=== PATIENT | male | born 1940 | race Caucasian/White ===

== ENCOUNTER 2018-06-04 08:41 | Emergency (ER) | payer OTHER ==
[2018-06-04 09:14] LABS: Absolute Lymphocytes (CBC) 1.7 K/uL (0.7-4.9); Absolute Monocytes 0.8 K/uL (0.1-1.3); Absolute Neutrophil 5.5 K/uL (1.8-8.0); Basophils % 1.1 % (0-1.3); Eosinophils % 4.2 % (0-4.4); Hematocrit 44.3 % (39.6-49.0); Lymphocytes % 19.7 % (15.3-44.8); MCH 33.3 pg (27.0-35.0); MCV 94.1 fL (80-100); MPV 8.9 fL (7.6-11.3); RBC Red Blood Cell Count 4.71 M/uL (4.33-5.43)
[2018-06-04] MEDS ORDERED: ONDANSETRON 4 MG/2 ML VIAL ONE (09:17)
[2018-06-04] MEDS ORDERED: MORPHINE 4 MG/ML SYR ONE (09:17)
[2018-06-04 09:30] LABS: Albumin 3.6 g/dL (3.4-5.0); Bilirubin Direct 0.1 mg/dL (0-0.2); Bilirubin Total 0.7 mg/dL (0.2-1.0); Protein, Total 8.2 g/dL (6.4-8.2)
[2018-06-04 09:31] LABS: Protime INR 1.03
--- NOTE | 2018-06-04 09:39 | RAD REPORT ---
EXAM DESCRIPTION: US - Abdomen Exam Limited - 06/04/2018 9:26 am CLINICAL HISTORY: RUQ Pain COMPARISON: No comparisons FINDINGS: The gallbladder demonstrates no gallstones. No pericholecystic fluid or gallbladder wall t hickening. The common bile duct is normal measuring 4 mm. The liver demonstrates no findings of intrahepatic biliary dilatation. IMPRESSION: Unremarkable examination.
[2018-06-04 09:43] LABS: Magnesium 2.1 mg/dL (1.8-2.4); NT PRO-BNP 187 pg/mL (<450); Troponin (Emerg Dept Use Only) < 0.02 ng/mL (0.0-0.045)
--- NOTE | 2018-06-04 09:46 | RAD REPORT ---
EXAM DESCRIPTION: RAD - Chest Single View - 06/04/2018 9:39 am CLINICAL HISTORY: CHEST PAIN Chest pain. COMPARISON: CHEST SINGLE VIEW dated 12/23/2011 FINDINGS: Portable technique limits examination quality. The lungs are grossly clear. The heart is normal in size. No displaced fractures. IMPRESSION: No acute intrathoracic process suspected.
--- NOTE | 2018-06-04 10:13 | RAD REPORT ---
EXAM DESCRIPTION: CT - Abdomen Pelvis W Contrast - 06/04/2018 9:56 am CLINICAL HISTORY: Abdominal pain COMPARISON: None. TECHNIQUE: Biphasic, helical CT imaging of the abdomen and pelvis was performed following 100 ml non -ionic IV contrast. Oral contrast was given. All CT scans are performed using dose optimization technique as appropriate and may include automated exposure control or mA/KV adjustment according to patient size. FINDINGS: No suspicious findings in the lung bases. The liver, spleen, and pancreas show no suspicious findings. Gallbladder and biliary tree are also wi thout suspicious finding. Symmetric renal function is seen with no hydronephrosis or suspicious renal mass. No pyelonephritis o r acute parenchymal process. No bladder abnormalities. No adrenal abnormalities. No dilated bowel loops or bowel wall thickening. No appendicitis findings. Patient has moderate sever ity sigmoid diverticulosis without diverticulitis. No acute GI process seen. No free air, free fluid or pneumatosis. Patient has a nonspecific congested or edematous appearance to the central mesenteric fat. There are few small mesenteric lymph nodes present. No mass or bulky lymphadenopathy. Patient has a small fat only umbilical hernia. No suspicious bony findings. IMPRESSION: Moderate diverticulosis of the sigmoid colon without diverticulitis or acute GI process. Nonspecific congestion to the central mesenteric fat and a few small mesenteric lymph nodes. This is generally of no clinical significance. Minimal enteritis would be possible.
--- NOTE | 2018-06-04 10:59 | EDPHYS ---
Physician Documentation [facility] Name: Luis Beach Age: 77 yrs Sex: Male : 1940 Arrival Date: 06/04/2018 Time: 08:46 Bed 19 Private MD: Travon Mendoza E ED Physician Travon Paulson HPI: 06/04 09:30 This 77 yrs old Male presents to ER via Ambulatory with complaints of pm1 Abdominal pain. 09:30 The patient presents with abdominal pain in the right upper quadrant. Onset: The pm1 symptoms/episode began/occurred 3 day(s) ago. The symptoms radiate to right back. Associated signs and symptoms: Pertinent negatives: nausea, vomiting, and diarrhea. The symptoms are described as constant, sharp. Modifying factors: The symptoms are alleviated by nothing, the symptoms are aggravated by movement. Modifying factors: The symptoms are alleviated by NSAIDs. Severity of pain: in the emergency department the pain is unchanged. The patient has not experienced similar symptoms in the past. 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 - Social history:: Smoking status: Patient/guardian denies using tobacco. - Ebola Screening: : Patient negative for fever greater than or equal to 101.5 degrees Fahrenheit, and additional compatible Ebola Virus Disease symptoms Patient denies exposure to infectious person Patient denies travel to an Ebola-affected area in the 21 days before illness onset No symptoms or risks identified at this time. ROS: 09:30 Constitutional: Negative for fever, chills, and weight loss, Eyes: Negative for injury, pm1 pain, redness, and discharge, ENT: Negative for injury, pain, and discharge, Neck: Negative for injury, pain, and swelling, Cardiovascular: Negative for chest pain, palpitations, and edema, Respiratory: Negative for shortness of breath, cough, wheezing, and pleuritic chest pain. 09:30 : Negative for injury, bleeding, discharge, and swelling, MS/Extremity: Negative for injury and deformity, Skin: Negative for injury, rash, and discoloration. 09:30 Neuro: Negative for headache, weakness, numbness, tingling, and seizure. 09:30 Abdomen/GI: Positive for abdominal pain, Negative for nausea, vomiting, and diarrhea. 09:30 Back: Positive for of the right mid back, pain. Exam: 09:30 Constitutional: This is a well developed, well nourished patient who is awake, alert, pm1 and in no acute distress. Head/Face: Normocephalic, atraumatic. Eyes: Pupils equal round and reactive to light, extra-ocular motions intact. Lids and lashes normal. Conjunctiva and sclera are non-icteric and not injected. Cornea within normal limits. Periorbital areas with no swelling, redness, or edema. ENT: Nares patent. No nasal discharge, no septal abnormalities noted. Tympanic membranes are normal and external auditory canals are clear. Oropharynx with no redness, swelling, or masses, exudates, or evidence of obstruction, uvula midline. Mucous membranes moist. Neck: Trachea midline, no thyromegaly or masses palpated, and no cervical lymphadenopathy. Supple, full range of motion without nuchal rigidity, or vertebral point tenderness. No Meningismus. Chest/axilla: Normal chest wall appearance and motion. Nontender with no deformity. No lesions are appreciated. Cardiovascular: Regular rate and rhythm with a normal S1 and S2. No gallops, murmurs, or rubs. Normal PMI, no JVD. No pulse deficits. Respiratory: Lungs have equal breath sounds bilaterally, clear to auscultation and percussion. No rales, rhonchi or wheezes noted. No increased work of breathing, no retractions or nasal flaring. 09:30 Skin: Warm, dry with normal turgor. Normal color with no rashes, no lesions, and no evidence of cellulitis. MS/ Extremity: Pulses equal, no cyanosis. Neurovascular intact. Full, normal range of motion. 09:30 Abdomen/GI: Inspection: abdomen appears normal, Bowel sounds: normal, Palpation: soft, mild abdominal tenderness, in the right upper quadrant, mass, is not appreciated, rebound tenderness, is not appreciated. 09:30 Back: vertebral tenderness, is not appreciated, muscle spasm, is appreciated in the right mid back. 09:30 Neuro: Orientation: is normal, Motor: is normal, no acute changes, moves all fours, Sensation: is normal, no obvious gross deficits. Vital Signs: 08:57 BP 207 / 89; Pulse 68; Resp 18 S; Temp 97.5(TE); Pulse Ox 97% on R/A; Weight 88.45 kg; iw Height 5 ft. 9 in. (175.26 cm); Pain 10/10; 09:31 BP 187 / 79; iw 10:08 Pain 2/10; sv 10:10 BP 205 / 90; Pulse 69 MON; Resp 15; Pulse Ox 99% on R/A; sv 10:49 BP 174 / 81; Pulse 63; Resp 16; Pulse Ox 95% ; sv 11:10 BP 171 / 79; Pulse 70; Resp 18; Temp 98.5; Pulse Ox 96% on R/A; Pain 5/10; ch 08:57 Body Mass Index 28.80 (88.45 kg, 175.26 cm) iw 10:10 Sinus Rhythm sv MDM: 08:50 Patient medically screened. pm1 10:56 Data reviewed: vital signs. Data interpreted: Pulse oximetry: on room air is 99 %. pm1 Interpretation: normal. Counseling: I had a detailed discussion with the patient and/or guardian regarding: the historical points, exam findings, and any diagnostic results supporting the discharge/admit diagnosis, lab results, radiology results, the need for outpatient follow up, to return to the emergency department if symptoms worsen or persist or if there are any questions or concerns that arise at home. 10:56 Special discussion: Based on the patient's Hx, exam, and Dx evaluation, there is no pm1 indication for emergent surgery or inpatient Tx. It is understood by the patient/guardian that if the Sx's persist or worsen they need to return immediately for re-evaluation. I discussed with the patient/guardian in detail that at this point there is no indication for admission to the hospital. It is understood, however, that if the symptoms persist or worsen the patient needs to return immediately for re-evaluation. 06/04 08:58 Order name: Basic Metabolic Panel pm1 06/04 08:58 Order name: CBC with Diff pm1 06/04 08:58 Order name: Creatinine for Radiology; Complete Time: :36 pm1 06/04 08:58 Order name: Hepatic Function; Complete Time: 09:36 pm1 06/04 08:58 Order name: Lipase; Complete Time: 09:36 pm1 06/04 08:59 Order name: Basic Metabolic Panel; Complete Time: 09:36 EDMS 06/04 08:58 Order name: US Abdomen Limited; Complete Time: 09:41 pm1 06/04 08:59 Order name: CBC with Automated Diff; Complete Time: 09:36 EDMS 06/04 09:07 Order name: Magnesium; Complete Time: 10:05 pm1 06/04 09:07 Order name: NT PRO-BNP; Complete Time: 10:05 pm1 06/04 09:07 Order name: PT-INR; Complete Time: 09:41 pm1 06/04 09:07 Order name: Troponin (emerg Dept Use Only); Complete Time: 10:05 pm1 06/04 09:07 Order name: XRAY Chest (1 view); Complete Time: 10:05 pm1 06/04 09:37 Order name: CT Abd/Pelvis - W/Contrast: IV contrast only; Complete Time: 10:27 pm1 06/04 08:58 Order name: IV Saline Lock; Complete Time: 09:07 pm1 06/04 08:58 Order name: Labs collected and sent; Complete Time: 09:07 pm1 06/04 09:07 Order name: EKG; Complete Time: 09:08 pm1 06/04 09:07 Order name: Cardiac monitoring; Complete Time: 10:08 pm1 06/04 09:07 Order name: EKG - Nurse/Tech; Complete Time: 09:15 pm1 06/04 09:07 Order name: O2 Per Protocol; Complete Time: 09:15 pm1 06/04 09:07 Order name: O2 Sat Monitoring; Complete Time: 09:15 pm1 Administered Medications: 09:13 Drug: Zofran 4 mg Route: IVP; Site: right antecubital; sv 10:08 Follow up: Response: No adverse reaction sv 09:15 Drug: morphine 4 mg Route: IVP; Site: right antecubital; sv 10:08 Follow up: Pain 2/10 Adult; Response: No adverse reaction; Marked relief of symptoms sv Disposition: 06/04/18 10:59 Discharged to Home. Impression: Unspecified abdominal pain. - Condition is Stable. - Discharge Instructions: Abdominal Pain, Adult, Back Pain, Adult, Back Injury Prevention. - Prescriptions for Tramadol 50 mg Oral Tablet - take 1 tablet by ORAL route every 8 hours as needed; 12 tablet. - Medication Reconciliation Form, Thank You Letter, Prescription Opioid Use form. - Follow up: Emergency Department; When: As needed; Reason: Worsening of condition. Follow up: Private Physician; When: 2 - 3 days; Reason: Recheck today's complaints, Continuance of care, Re-evaluation by your physician. - Problem is new. - Symptoms have improved. Signatures: Dispatcher [employer] EDAaliyah Garces RN RN Sera Holder RN RN Tamia Burnett RN RN iw Mauri Grande NP LD TEACHER pm1 Corrections: (The following items were deleted from the chart) 11:11 10:59 06/04/2018 10:59 Discharged to Home. Impression: Unspecified abdominal pain. ch Condition is Stable. Forms are Medication Reconciliation Form, Thank You Letter, Antibiotic Education, Prescription Opioid Use. Follow up: Emergency Department; When: As needed; Reason: Worsening of condition. Follow up: Private Physician; When: 2 - 3 days; Reason: Recheck today's complaints, Continuance of care, Re-evaluation by your physician. Problem is new. Symptoms have improved. pm1
--- NOTE | 2018-06-04 10:59 | ER ---
Nurse's Notes [facility] Name: Luis Beach Age: 77 yrs Sex: Male : 1940 Arrival Date: 06/04/2018 Time: 08:46 Bed 19 Private MD: Travon Mendoza E Diagnosis: Unspecified abdominal pain Presentation: 06/04 08:55 Presenting complaint: Patient states: c/o pain to RUQ radiating to right mid back X 3 iw days, constant. Transition of care: patient was not received from another setting of care. Onset of symptoms was June 01, 2018. Risk Assessment: Do you want to hurt yourself or someone else? Patient reports no desire to harm self or others. Initial Sepsis Screen: Does the patient meet any 2 criteria? No. Patient's initial sepsis screen is negative. Does the patient have a suspected source of infection? No. Patient's initial sepsis screen is negative. Care prior to arrival: None. 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 - Social history:: Smoking status: Patient/guardian denies using tobacco. - Ebola Screening: : Patient negative for fever greater than or equal to 101.5 degrees Fahrenheit, and additional compatible Ebola Virus Disease symptoms Patient denies exposure to infectious person Patient denies travel to an Ebola-affected area in the 21 days before illness onset No symptoms or risks identified at this time. Screenin:50 Abuse screen: Denies threats or abuse. Denies injuries from another. Nutritional sv screening: No deficits noted. Tuberculosis screening: No symptoms or risk factors identified. Fall Risk None identified. Assessment: 10:11 Reassessment: Patient appears in no apparent distress at this time. Patient and/or sv family updated on plan of care and expected duration. Pain level reassessed. Patient is alert, oriented x 3, equal unlabored respirations, skin warm/dry/pink. Patient states symptoms have improved. 11:10 Reassessment: Patient appears in no apparent distress at this time. Patient and/or ch family updated on plan of care and expected duration. Pain level reassessed. Patient is alert, oriented x 3, equal unlabored respirations, skin warm/dry/pink. Patient states feeling better. Vital Signs: 08:57 BP 207 / 89; Pulse 68; Resp 18 S; Temp 97.5(TE); Pulse Ox 97% on R/A; Weight 88.45 kg; iw Height 5 ft. 9 in. (175.26 cm); Pain 10/10; 09:31 BP 187 / 79; iw 10:08 Pain 2/10; sv 10:10 BP 205 / 90; Pulse 69 MON; Resp 15; Pulse Ox 99% on R/A; sv 10:49 BP 174 / 81; Pulse 63; Resp 16; Pulse Ox 95% ; sv 11:10 BP 171 / 79; Pulse 70; Resp 18; Temp 98.5; Pulse Ox 96% on R/A; Pain 5/10; ch 08:57 Body Mass Index 28.80 (88.45 kg, 175.26 cm) iw 10:10 Sinus Rhythm sv ED Course: 08:46 Patient arrived in ED. mr 08:46 Travon Mendoza MD is Private Physician. mr 08:49 Mauri Grande NP is PHCP. pm1 08:49 Travon Paulson MD is Attending Physician. pm1 08:50 Sera Martinez RN is Primary Nurse. sv 08:50 Arm band placed on Patient placed in an exam room, on a stretcher. sv 08:50 Patient has correct armband on for positive identification. Placed in gown. Bed in low sv position. 08:54 Nurse Practitioner and/or Physician Post Office Clerk to see patient. sv 08:56 Triage completed. iw 09:08 Basic Metabolic Panel Sent. sv 09:08 CBC with Diff Sent. sv 09:08 EKG done, by equipment maint tech. reviewed by Mauri Grande NP. at1 09:16 Patient taken to ultrasound. via wheelchair. sv 09:26 US Abdomen Limited In Process Unspecified. EDMS 09:35 Radiology exam delayed due to PT IN ULTRASOUND. ls3 09:36 X-ray completed. Patient tolerated procedure well. ls3 09:37 Patient moved back from radiology. ls3 09:38 XRAY Chest (1 view) In Process Unspecified. EDMS 09:57 CT Abd/Pelvis - W/Contrast: IV contrast only In Process Unspecified. EDMS 10:11 No provider procedures requiring assistance completed. Patient maintains SpO2 sv saturation greater than 95% on room air. 11:10 quality assurance monitor body on. Pulse ox on. NIBP on. ch 11:10 IV discontinued, intact, bleeding controlled, No redness/swelling at site. Pressure ch dressing applied. Administered Medications: 09:13 Drug: Zofran 4 mg Route: IVP; Site: right antecubital; sv 10:08 Follow up: Response: No adverse reaction sv 09:15 Drug: morphine 4 mg Route: IVP; Site: right antecubital; sv 10:08 Follow up: Pain / Adult; Response: No adverse reaction; Marked relief of symptoms sv Outcome: 10:59 Discharge ordered by MD. pm1 11:10 Discharged to home ambulatory, with family. ch 11:10 Condition: stable 11:10 Discharge instructions given to patient, family, Instructed on discharge instructions, follow up and referral plans. medication usage, Demonstrated understanding of instructions, follow-up care, medications, Prescriptions given X 1. 11:11 Patient left the ED. Signatures: Dispatcher [employer] EDMS Aaliyah Poole, RN Sera Lee ch RN Delia Flynn Irene, RN RN iw Corrie Hendrix, hide selector EKG Tat1 Mauri Grande, PORCELAIN ENAMEL REPAIRER PORCELAIN ENAMEL REPAIRER pm1 George Dinh ls3 Corrections: (The following items were deleted from the chart) 09:02 08:57 Pulse 68bpm; Resp 18bpm; Spontaneous; Pulse Ox 97% RA; Temp 97.5F Temporal; iw iw
--- NOTE | 2018-06-04 11:07 | EKG ---
Test Date: 2018-06-04 Test Time: 09:08:04 Desk Sergeant: DUSTY MEASUREMENT RESULTS: Intervals: Rate: 61 MN: 184 QRSD: 96 QT: 444 QTc: 446 [place]: P: 57 MN: 184 QRS: -38 T: 72 INTERPRETIVE STATEMENTS: Sinus rhythm with premature atrial complexes Left axis deviation Voltage criteria for left ventricular hypertrophy Abnormal ECG Compared to ECG 12/23/2011 08:08:05 Atrial premature complex(es) now present Left-axis deviation now present Electronically Signed On 06-04-18 11:05:49 MASTER WELDER by Sammy Reyes
[2018-06-04 11:24] VITALS: BP 171/79; TEMP 98.5; O2SAT 96
== END 2018-06-04 11:11 | disposition home or self-care (01) ==
LOC: ER 08:41
DX: R10.11 Right upper quadrant pain (principal); I10 Essential (primary) hypertension
CPT/HCPCS: 36415; 71045; 74177; 76705; 80048; 80076; 83690; 83735; 83880; 84484; 85025; 85610; 93005; J2405; Q9967; 96374; 96375; 99285

== ENCOUNTER 2018-06-30 22:03 | Emergency (ER) | payer OTHER ==
--- NOTE | 2018-06-30 22:50 | ER ---
Nurse's Notes [facility] Name: Luis Beach Age: 77 yrs Sex: Male : 1940 Arrival Date: 06/30/2018 Time: 22:04 Bed 5 Private MD: Travon Mendoza E Diagnosis: Zoster [herpes zoster] Presentation: 06/30 22:11 Presenting complaint: Patient states: "I was diagnosed with shingles a month ago, I aj1 took all my medications and this thing has been going for 30 days and I have no pain relief" Patient reports that he has not been able to follow up with [place] Transition of care: patient was not received from another setting of care. Onset of symptoms was May 2018. Risk Assessment: Do you want to hurt yourself or someone else? Patient reports no desire to harm self or others. Initial Sepsis Screen: Does the patient meet any 2 criteria? No. Patient's initial sepsis screen is negative. Does the patient have a suspected source of infection? No. Patient's initial sepsis screen is negative. Care prior to arrival: None. 22:11 Method Of Arrival: Ambulatory aj1 22:11 Acuity: RAN 3 aj1 Triage Assessment: 22:13 General: Appears in no apparent distress. uncomfortable, Behavior is calm, cooperative, aj1 appropriate for age. Pain: Complains of pain in back and abdomen Pain currently is 10 out of 10 on a pain scale. Neuro: Level of Consciousness is awake, alert, obeys commands. Cardiovascular: Patient's skin is warm and dry. Respiratory: Airway is patent Respiratory effort is even, unlabored, Respiratory pattern is regular, symmetrical. Historical: - Allergies: 22:13 No Known Allergies; aj1 - Home Meds: 22:13 amlodipine 5 mg oral tab once daily [Active]; carvedilol 12.5 mg Oral tab 2 times per aj1 day [Active]; hydrochlorothiazide 12.5 mg Oral tab 1 tab once daily [Active]; - PMHx: 22:13 Hypertension; aj1 - Immunization history:: Flu vaccine is not up to date. - Social history:: Smoking status: Patient/guardian denies using tobacco. - Ebola Screening: : Patient denies travel to an Ebola-affected area in the 21 days before illness onset. - Family history:: not pertinent. - Hospitalizations: : No recent hospitalization is reported. Screenin:14 Abuse screen: Denies threats or abuse. Denies injuries from another. Nutritional ed1 screening: No deficits noted. Tuberculosis screening: No symptoms or risk factors identified. Fall Risk None identified. Assessment: 22:14 General: Appears uncomfortable, Behavior is calm, cooperative. Pain: Complains of pain ed1 in chest and abdomen and back Pain currently is 10 out of 10 on a pain scale. Quality of pain is described as burning, stinging, Pain began about 1 month ago. Neuro: Level of Consciousness is awake, alert, obeys commands, Oriented to person, place, time, situation. Cardiovascular: Denies chest pain, Heart tones S1 S2 present. Respiratory: Airway is patent Respiratory effort is even, unlabored, Respiratory pattern is regular, symmetrical, Breath sounds are clear bilaterally. Denies cough, shortness of breath. GI: No signs and/or symptoms were reported involving the gastrointestinal system. : No signs and/or symptoms were reported regarding the genitourinary system. EENT: No signs and/or symptoms were reported regarding the EENT system. Derm: Skin is intact, is healthy with good turgor, Skin is dry, Skin is normal, Skin temperature is warm Reports shingles diagnosis about 30 days ago. Musculoskeletal: Circulation, motion, and sensation intact. 23:04 Reassessment: Patient appears in no apparent distress at this time. No changes from ed1 previously documented assessment. Patient and/or family updated on plan of care and expected duration. Pain level reassessed. Patient is alert, oriented x 3, equal unlabored respirations, skin warm/dry/pink. Patient states symptoms have not improved. Vital Signs: 22:13 BP 172 / 99; Pulse 76; Resp 18; Temp 98.9; Pulse Ox 97% on R/A; Weight 90.72 kg (R); aj1 Height 5 ft. 9 in. (175.26 cm) (R); Pain 10/10; 23:04 BP 164 / 76; Pulse 71; Resp 18; Pulse Ox 98% on R/A; Pain 10/10; ed1 22:13 Body Mass Index 29.53 (90.72 kg, 175.26 cm) [facility] ED Course: 22:04 Patient arrived in ED. es 22:04 Travon Mendoza MD is Private Physician. es 22:13 Triage completed. aj1 22:13 Arm band placed on Patient placed in waiting room, Patient notified of wait time. aj1 22:14 Patient has correct armband on for positive identification. Bed in low position. Call ed1 light in reach. 22:39 Dinesh Fernando MD is Attending Physician. rn 22:49 Travon Mendoza MD is Referral Physician. rn 23:04 Marii Brennan LVN is Primary Nurse. ed1 23:04 No provider procedures requiring assistance completed. Patient did not have IV access ed1 during this emergency room visit. Administered Medications: 22:58 Drug: SOLU-Medrol 125 mg Route: IM; Site: right gluteus; tl2 23:07 Follow up: Response: Medication administered at discharge. ed1 22:58 Drug: [place] 5 mg-325 mg 1 tabs Route: PO; tl2 23:07 Follow up: Response: Medication administered at discharge. ed1 Outcome: 22:50 Discharge ordered by . rn 23:04 Discharged to home ambulatory, with significant other. ed1 23:04 Condition: good 23:04 Discharge instructions given to patient, Instructed on discharge instructions, follow up and referral plans. medication usage, Demonstrated understanding of instructions, follow-up care, medications. 23:07 Patient left the ED. ed1 Signatures: Natasha Oliva RN RN aj1 Lala Coffman Roman, MD MD rn Riggs, Erika, LVN LVN ed1 Malissa Henry RN RN tl2
--- NOTE | 2018-06-30 22:51 | EDPHYS ---
Physician Documentation [facility] Name: Luis Beach Age: 77 yrs Sex: Male : 1940 Arrival Date: 06/30/2018 Time: 22:04 Bed 5 Private MD: Travon Mendoza E ED Physician Dinesh Fernando HPI: 06/30 22:47 This 77 yrs old Male presents to ER via Ambulatory with complaints of rn SINGLES, Numbness, LEG. 22:47 The patient's rash thought to be caused by shingles. The rash is located on the chest. rn Onset: The symptoms/episode began/occurred 1 month(s) ago. Severity of symptoms: At their worst the symptoms were moderate in the emergency department the symptoms are unchanged. The patient has not experienced similar symptoms in the past. Reports diagnosed with shingles 1 month ago, took steroids, reports pain and rash still present, and his pcp is out of town. No new symptoms.. Historical: - Allergies: 22:13 No Known Allergies; aj1 - Home Meds: 22:13 amlodipine 5 mg oral tab once daily [Active]; carvedilol 12.5 mg Oral tab 2 times per aj1 day [Active]; hydrochlorothiazide 12.5 mg Oral tab 1 tab once daily [Active]; - PMHx: 22:13 Hypertension; aj1 - Immunization history:: Flu vaccine is not up to date. - Social history:: Smoking status: Patient/guardian denies using tobacco. - Ebola Screening: : Patient denies travel to an Ebola-affected area in the 21 days before illness onset. - Family history:: not pertinent. - Hospitalizations: : No recent hospitalization is reported. ROS: 22:47 Constitutional: Negative for fever, chills, and weight loss, Skin: + rash to right rn chest Exam: 22:47 Constitutional: This is a well developed, well nourished patient who is awake, alert, rn and in no acute distress. Skin: warm, dry, + linear rash to right chest wall, does not cross midline, no fluid drainage, + mild erythema and healing wounds Neuro: Awake and alert, GCS 15, oriented to person, place, time, and situation. Cranial nerves II-XII grossly intact. Motor strength 5/5 in all extremities. Sensory grossly intact. Cerebellar exam normal. Normal gait. Vital Signs: 22:13 BP 172 / 99; Pulse 76; Resp 18; Temp 98.9; Pulse Ox 97% on R/A; Weight 90.72 kg (R); aj1 Height 5 ft. 9 in. (175.26 cm) (R); Pain 10/10; 23:04 BP 164 / 76; Pulse 71; Resp 18; Pulse Ox 98% on R/A; Pain 10/10; ed1 22:13 Body Mass Index 29.53 (90.72 kg, 175.26 cm) aj MDM: 22:39 Patient medically screened. rn 22:47 Differential diagnosis: shingles. Data reviewed: vital signs, nurses notes, and as a rn result, I will discharge patient. Counseling: I had a detailed discussion with the patient and/or guardian regarding: the historical points, exam findings, and any diagnostic results supporting the discharge/admit diagnosis, the need for outpatient follow up, to return to the emergency department if symptoms worsen or persist or if there are any questions or concerns that arise at home. Special discussion: I discussed with the patient/guardian in detail that at this point there is no indication for admission to the hospital. It is understood, however, that if the symptoms persist or worsen the patient needs to return immediately for re-evaluation. Administered Medications: 22:58 Drug: SOLU-Medrol 125 mg Route: IM; Site: right gluteus; tl2 23:07 Follow up: Response: Medication administered at discharge. ed1 22:58 Drug: [place] 5 mg-325 mg 1 tabs Route: PO; tl2 23:07 Follow up: Response: Medication administered at discharge. ed1 Disposition: 06/30/18 22:50 Discharged to Home. Impression: Zoster [herpes zoster]. - Condition is Stable. - Discharge Instructions: Shingles. - Prescriptions for Tylenol- Codeine #3 300-30 mg Oral Tablet - take 1 tablet by ORAL route every 6 hours As needed; 20 tablet. Medrol (Thai) 4 mg Oral Tablets, Dose Pack - take 1 tablet by ORAL route as directed - follow package instructions; 1 packet. - Medication Reconciliation Form, Thank You Letter, Antibiotic Education, Prescription Opioid Use form. - Follow up: Travon Mendoza MD; When: As needed; Reason: Recheck today's complaints, Re-evaluation by your physician. - Problem is an ongoing problem. - Symptoms are unchanged. Signatures: Natasha Oliva RN RN aj1 Dinesh Fernando MD MD rn Riggs, Erika, APPLIANCE SERVICE SUPERVISOR APPLIANCE SERVICE SUPERVISOR ed1 Malissa Henry, RN RN tl2 Corrections: (The following items were deleted from the chart) 22:49 22:47 Constitutional: This is a well developed, well nourished patient who is awake, rn alert, and in no acute distress. Skin: warm, dry, + linear rash to right chest wall, does not cross midline, no fluid drainage, + mild erythema and healing wounds rn 23:07 22:50 06/30/2018 22:50 Discharged to Home. Impression: Zoster [herpes zoster]. ed1 Condition is Stable. Forms are Medication Reconciliation Form, Thank You Letter, Antibiotic Education, Prescription Opioid Use. Follow up: Travon Mendoza; When: As needed; Reason: Recheck today's complaints, Re-evaluation by your physician. Problem is an ongoing problem. Symptoms are unchanged. rn
[2018-06-30] MEDS ORDERED: METHYLPREDNISOLONE 125 MG INJ ONE (23:04)
[2018-06-30] MEDS ORDERED: HYDROCODONE/APAP 5/325 MG TAB ONE (23:04)
[2018-06-30 23:40] VITALS: TEMP 98.9
[2018-06-30 23:41] VITALS: BP 164/76; O2SAT 98
== END 2018-06-30 23:07 | disposition home or self-care (01) ==
LOC: ER 22:03
DX: B02.9 Zoster without complications (principal); I10 Essential (primary) hypertension
CPT/HCPCS: 96372; 99283; J2930

== ENCOUNTER 2022-11-14 10:24 | Emergency (ER) | payer OTHER ==
--- OUTSIDE RECORDS SUMMARY | 2022-11-14 10:28 | XMS REPORT | Continuity of Care Document ---
:1940 Author Organization [facility] Address [address] [place] [address] Care Team Providers Name Role Phone NADEEM HARVEY Attending Clinician Unavailable LISA MERAZ Attending Clinician Unavailable STACY MARINO Attending Clinician Unavailable STACY MARINO Attending Clinician Unavailable KACY MCKEON Attending Clinician Unavailable Payers Payer Name Policy Type Policy Number Effective Date Expiration Date S ayush MEDICARE PART A [id number] 2003 \T\ B 00:00:00 Problems This patient has no known problems. Allergies, Adverse Reactions, Alerts Allergy Allergy Status Severity Reaction(s) Onset Inactive Treating Comm ents Source Name Type Date Date Clinician NO KNOWN Drug Active [facility] Medications This patient has no known medications. Procedures This patient has no known procedures. Encounters Start End Encounter Admission Attending Care Care Encounter Source Date/Time Date/Time Type Type Clinicians Facility Department ID 2020-07-13 2020-07-13 Outpatient R WES [facility] [id number] Univers 09:00:00 09:00:[address] [facility] 2020-06-17 2020-06-17 Outpatient R MARIYA [facility] [id number] [facility] 20:20:00 20:20:00 LISA de [facility] 2020-06-16 2020-06-16 Outpatient R [facility] [id number] [facility] 13:40:00 13:40:00 [facility] 2020-06-08 2020-06-08 Outpatient R STACY MARINO [facility] [id number] [facility] 10:00:00 10:00:00 STACY MARINO [facility] 2020-05-18 2020-05-18 Outpatient R LINDA [facility] [id number] Univers 14:30:00 14:30:00 KACY franco [facility] Results This patient has no known results.
--- NOTE | 2022-11-14 12:01 | RAD REPORT ---
EXAM DESCRIPTION: CT - Spine Lumbar Wo Con - 11/14/2022 11:32 am CLINICAL HISTORY: pain, left leg weaknes COMPARISON: No comparisons TECHNIQUE: Axial noncontrast CT imaging of the lumbar spine was performed with coronal and sagittal re-formatted images. All CT scans are performed using dose optimization technique as appropriate and may include automated exposure control or mA/KV adjustment according to patient size. FINDINGS: No acute lumbar spine fracture seen. No aggressive marrow pattern. 4 millimeter anterolisthesis of L4 over L5, secondary to advanced facet and endplate degenerative bhargav nges. Paraspinal tissues are normal in thickness. No paraspinal abscess or hematoma seen. Intervertebral disc disease assessment is inherently limited by CT. Within these limitations, there a ppears to be at least moderate central canal stenosis at L4-5. Suspected mild central canal stenosis at L5-S1. Mild to moderate degrees of neural foraminal narrowing at L4-5 bilaterally, and mild degree s of neural foraminal narrowing at L3-4 and L5-S1 bilaterally. Colonic diverticulosis. IMPRESSION: No acute osseous abnormality. Multilevel degenerative changes of the lumbar spine with suspected at least moderate central canal st enosis at L4-5. Consider MRI follow-up for assessment of disc disease if clinically desired.
--- NOTE | 2022-11-14 12:02 | RAD REPORT ---
EXAM DESCRIPTION: RAD - Hip Left 2 View - 11/14/2022 11:40 am CLINICAL HISTORY: PAIN COMPARISON: No comparisons TECHNIQUE: Left hip, AP and frogleg views of the left hip. FINDINGS: There is no fracture or dislocation. No acute or destructive bony process seen. Mild lef t hip joint degenerative changes. IMPRESSION: No acute osseous abnormality. Mild degenerative changes.
[2022-11-14 12:19] LABS: Absolute Lymphocytes (CBC) 1.6 K/uL (0.7-4.9); Hematocrit 38.8 % (39.6-49.0); Lymphocytes % 20.9 % (15.3-44.8); MCV 93.3 fL (80-100); MPV 8.5 fL (7.6-11.3); RBC Red Blood Cell Count 4.16 M/uL (4.33-5.43)
[2022-11-14] MEDS ORDERED: KETOROLAC 30 MG/ML INJ ONE (12:23)
[2022-11-14] MEDS ORDERED: CYCLOBENZAPRINE 10 MG TAB ONE (12:23)
[2022-11-14 12:35] LABS: Albumin 3.1 g/dL (3.4-5.0); Bilirubin Total 0.4 mg/dL (0.2-1.0); Potassium 3.7 mEq/L (3.5-5.1); Protein, Total 7.3 g/dL (6.4-8.2)
--- NOTE | 2022-11-14 13:59 | EDPHYS ---
Physician Documentation [facility] Name: Luis Beach Age: 81 yrs Sex: Male : 1940 Arrival Date: 11/14/2022 Time: 10:24 Bed DIS2 Private MD: ED Physician James Bernal HPI: 11/14 13:46 This 81 yrs old Male presents to ER via Wheelchair with complaints of Back bs3 Pain, Trouble Walking. 13:46 81-year-old male history of hypertension usually walks with a cane at baseline presents bs3 with low back pain he feels like it is more in his left hip he denies any numbness tingling or weakness but he notes that due to the pain he has trouble walking he denies any falls denies any fevers or chills he denies any urinary or bowel incontinence denies any retention no saddle anesthesia although he reports ever since being diagnosed with COVID a long time ago he has had generalized weakness. Historical: - Allergies: 11:04 No Known Allergies; hb - PMHx: 11:04 Hypertension; hb - Immunization history:: Adult Immunizations up to date. - Social history:: Smoking status: . ROS: 13:46 Constitutional: Negative for fever, chills bs3 13:46 All other systems are negative. Exam: 13:46 Constitutional: This is a well developed, well nourished patient who is awake, alert, bs3 and in no acute distress. Head/Face: Normocephalic, atraumatic. Eyes: Pupils equal round and reactive to light, extra-ocular motions intact. Lids and lashes normal. ENT: mmm, no posterior phyarngeal erythema Neck: Trachea midline, no thyromegaly, no neck stiffness Chest/axilla: Normal chest wall appearance and motion. Nontender with no deformity. No lesions are appreciated. Cardiovascular: Regular rate and rhythm with a normal S1 and S2. symmetric pulses in upper extremities Respiratory: Lungs have equal breath sounds bilaterally, clear to auscultation, no respiratory distress Abdomen/GI: Soft, non-tender, no rebound or guarding Back: left paraspinal tenderness, no midline tenderness, no saddle anestehsia, normal rectal tone MS/ Extremity: Pulses equal, no cyanosis. Neurovascular intact. Full, normal range of motion. 2+ pitting edema bilaterally patient states this is chronic Neuro: Awake and alert, GCS 15, oriented to person, place, time, and situation. Cranial nerves II-XII grossly intact. Motor strength 5/5 in all extremities. Sensory grossly intact. Vital Signs: 11:04 BP 175 / 98; Pulse 73; Resp 18; Temp 97.7(TE); Pulse Ox 98% on R/A; Weight 90.72 kg; hb Height 5 ft. 9 in. ; Pain 10; 11:04 Body Mass Index 29.53 (90.72 kg, 175.26 cm) hb 11:04 Pain Scale: Adult hb MDM: 10:59 Patient medically screened. bs3 13:56 Data reviewed: vital signs, nurses notes. 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 Pt able to walk on reassessment, return prec given. . 11/14 11:10 Order name: CBC with Diff; Complete Time: 13:05 bs3 11/14 11:10 Order name: Comprehensive Metabolic Panel; Complete Time: 13:05 bs3 11/14 11:10 Order name: CT Lumbar Spine Wo Con; Complete Time: 12:04 bs3 11/14 11:40 Order name: Hip Left 2 View; Complete Time: 12:04 EDMS Administered Medications: 12:28 Not Given (Duplicate Order): Ketorolac IM 30 mg IM once iw 12:28 Drug: Cyclobenzaprine PO 10 mg Route: PO; iw 12:28 Drug: Ketorolac IVP 30 mg Route: IVP; Site: right antecubital; iw Disposition Summary: 11/14/22 13:58 Discharge Ordered Location: Home bs3 Problem: new bs3 Symptoms: have improved bs3 Condition: Stable bs3 Diagnosis - Low back pain bs3 Followup: bs3 - With: Private Physician - When: 5 - 6 days - Reason: Re-evaluation by your physician Discharge Instructions: - Discharge Summary Sheet bs3 - Acute Back Pain, Adult bs3 - Musculoskeletal Pain bs3 - Spinal Stenosis, [id number]-[id number] bs3 Forms: - Medication Reconciliation Form bs3 - Thank You Letter bs3 - Antibiotic Education bs3 - Prescription Opioid Use bs3 Prescriptions: - meloxicam 7.5 mg Oral tablet - take 1 tablet by ORAL route daily; 12 tablet; Refills: 0, Product Selection bs3 Permitted - tizanidine 2 mg Oral tablet - take 1 tablet by ORAL route every 6 to 8 hours as needed for muscle spasticity; bs3 do not exceed 3 doses per 24 hrs; 12 tablet; Refills: 0, Product Selection Permitted - Prednisone 20 mg Oral Tablet - take 2 tablets by ORAL route once daily for 5 days; 10 tablet; Refills: 0, bs3 Product Selection Permitted Signatures: Dispatcher [employer] EDNY Taima Blackwell RN RN Helga Morris RN RN hb Stein, Brandon, MD MD bs3 Corrections: (The following items were deleted from the chart) 11:40 11:10 Hip Left 1 View+RAD.RAD.BRZ ordered. [facility] EDNY 13:56 13:46 Constitutional: This is a well developed, well nourished patient who is awake, bs3 alert, and in no acute distress. Head/Face: Normocephalic, atraumatic. Eyes: Pupils equal round and reactive to light, extra-ocular motions intact. Lids and lashes normal. ENT: mmm, no posterior phyarngeal erythema Neck: Trachea midline, no thyromegaly, no neck stiffness Chest/axilla: Normal chest wall appearance and motion. Nontender with no deformity. No lesions are appreciated. Cardiovascular: Regular rate and rhythm with a normal S1 and S2. symmetric pulses in upper extremities Respiratory: Lungs have equal breath sounds bilaterally, clear to auscultation, no respiratory distress Abdomen/GI: Soft, non-tender, no rebound or guarding Back: left paraspinal tenderness, no midline tenderness, no saddle anestehsia, normal rectal tone MS/ Extremity: Pulses equal, no cyanosis. Neurovascular intact. Full, normal range of motion. Neuro: Awake and alert, GCS 15, oriented to person, place, time, and situation. Cranial nerves II-XII grossly intact. Motor strength 5/5 in all extremities. Sensory grossly intact. bs3
--- NOTE | 2022-11-14 13:59 | ER ---
Nurse's Notes [facility] Name: Luis Beach Age: 81 yrs Sex: Male : 1940 Arrival Date: 11/14/2022 Time: 10:24 Bed DIS2 Private MD: Diagnosis: Low back pain Presentation: 11/14 11:02 Chief complaint: Left low back and hip pain x weeks, worse since last night. hb Coronavirus screen: At this time, the client does not indicate any symptoms associated with coronavirus-19. Ebola Screen: No symptoms or risks identified at this time. Initial Sepsis Screen: Does the patient meet any 2 criteria? No. Patient's initial sepsis screen is negative. Does the patient have a suspected source of infection? No. Patient's initial sepsis screen is negative. Risk Assessment: Do you want to hurt yourself or someone else? Patient reports no desire to harm self or others. 11:02 Method Of Arrival: Wheelchair hb 11:04 Onset of symptoms was November 14, 2022. hb 11:04 Acuity: RAN 4 hb Historical: - Allergies: 11:04 No Known Allergies; hb - PMHx: 11:04 Hypertension; hb - Immunization history:: Adult Immunizations up to date. - Social history:: Smoking status: . Vital Signs: 11:04 BP 175 / 98; Pulse 73; Resp 18; Temp 97.7(TE); Pulse Ox 98% on R/A; Weight 90.72 kg; hb Height 5 ft. 9 in. ; Pain 10/10; 11:04 Body Mass Index 29.53 (90.72 kg, 175.26 cm) hb 11:04 Pain Scale: Adult hb ED Course: 10:26 Patient arrived in ED. am2 10:59 James Bernal MD is Attending Physician. bs3 11:04 Arm band placed on. hb 11:09 Triage completed. hb 11:33 CT Lumbar Spine Wo Con In Process Unspecified. EDMS 11:40 Hip Left 2 View In Process Unspecified. EDMS 12:11 Comprehensive Metabolic Panel Sent. iw 12:11 CBC with Diff Sent. iw 12:23 Tamia Blackwell, RN is Primary Nurse. iw Administered Medications: 12:28 Not Given (Duplicate Order): Ketorolac IM 30 mg IM once iw 12:28 Drug: Cyclobenzaprine PO 10 mg Route: PO; iw 12:28 Drug: Ketorolac IVP 30 mg Route: IVP; Site: right antecubital; iw Outcome: 13:58 Discharge ordered by . bs3 14:15 Patient left the ED. iw Signatures: Dispatcher [employer] Tamia Carmichael RN RN iw Helga Morris RN RN Corrie Malhotra Brandon, MD MD bs3 Corrections: (The following items were deleted from the chart) 11: 11:02 Chief complaint: Left low back and hip pain since last night. hb hb
[2022-11-14 14:26] VITALS: BP 175/98; TEMP 97.7; O2SAT 98
[2022-11-14] MEDS ORDERED: CEFTRIAXONE 1000 MG/VIAL ONE (15:21)
[2022-11-14] MEDS ORDERED: NA CHLORIDE 0.9% 250 ML ONE (15:21)
[2022-11-14] MEDS ORDERED: AZITHROMYCIN 500 MG INJ IVPB ONE (15:21)
[2022-11-14] MEDS ORDERED: NA CHLORIDE 0.9% 500 ML ONE (15:22)
== END 2022-11-14 14:15 | disposition home or self-care (01) ==
LOC: ER 10:24
DX: M54.50 Low back pain, unspecified (principal)
CPT/HCPCS: 85025; 36415; 80053; 72131; 73502; 96374; 99284; J7050; J7040; J0696

== ENCOUNTER 2023-05-05 16:11 | Emergency (ER) | payer OTHER ==
--- OUTSIDE RECORDS SUMMARY | 2023-05-05 16:14 | XMS REPORT | Continuity of Care Document ---
:1940 Author Organization [facility] t Address [address] [place] [id number] Care Team Providers Name Role Phone NADEEM HARVEY Attending Clinician Unavailable LISA MERAZ Attending Clinician Unavailable STACY MARINO Attending Clinician Unavailable STACY MARINO Attending Clinician Unavailable KACY MCKEON Attending Clinician Unavailable Payers Payer Name Policy Type Policy Number Effective Date Expiration Date Jose peacock MEDICARE PART A [id number] 2003 \T\ B 00:00:00 Problems This patient has no known problems. Allergies, Adverse Reactions, Alerts Allergy Allergy Status Severity Reaction(s) Onset Inactive Treating Comm ents Source Name Type Date Date Clinician NO KNOWN Drug Active [facility] Medications This patient has no known medications. Procedures This patient has no known procedures. Encounters Start End Encounter Admission Attending Care Care Encounter Source Date/Time Date/Time Type Type Clinicians Facility Department ID 2020-07-13 2020-07-13 Outpatient R WES [facility] [id number] Univers 09:00:00 09:00:00 NADEEM franco o f [facility] 2020-06-17 2020-06-17 Outpatient R MARIYA [facility] [id number] Univers 20:20:00 20:20:00 LISA itde [facility] 2020-06-16 2020-06-16 Outpatient R [facility] [id number] Univers 13:40:00 13:40:00 de [facility] 2020-06-08 2020-06-08 Outpatient R STACY MARINO [facility] [id number] Univers 10:00:00 10:00:00 STACY MARINO [facility] 2020-05-18 2020-05-18 Outpatient R LINDA [facility] [id number] Univers 14:30:00 14:30:00 SENDIL de [facility] Results This patient has no known results.
[2023-05-05 16:32] LABS: Absolute Lymphocytes (CBC) 1.5 K/uL (0.7-4.9); Hematocrit 40.7 % (39.6-49.0); MCV 93.3 fL (80-100); MPV 8.4 fL (7.6-11.3); Platelets 188 thou/uL (152-406); RBC Red Blood Cell Count 4.36 M/uL (4.33-5.43)
[2023-05-05 16:57] LABS: Specific Gravity 1.013 (1.005-1.030); Urine Bacteria None Seen /HPF (<20); Urine Bilirubin NEGATIVE (Negative); Urine Blood Trace (Negative); Urine Clarity Clear (Clear); Urine Color Light-Yellow (Yellow); Urine Glucose NEGATIVE (Negative); Urine Protein TRACE (Negative); Urine Urobilinogen Normal (Normal); Urine pH 7.5 (5.0-7.0)
[2023-05-05 16:59] LABS: Magnesium 2.1 mg/dL (1.6-2.4); Potassium 3.9 mEq/L (3.5-5.1); Troponin High Sensitivity 14.2 pg/mL (<58.9)
--- NOTE | 2023-05-05 17:11 | RAD REPORT ---
EXAM DESCRIPTION: Kimani Single View05/05/2023 4:52 pm CLINICAL HISTORY: Chest pain COMPARISON: 2019 FINDINGS: The lungs appear clear of acute infiltrate. The heart is mildly enlarged IMPRESSION: No acute abnormalities displayed
--- NOTE | 2023-05-05 17:21 | RAD REPORT ---
EXAM DESCRIPTION: CT - Head C Spine Cap Wo Con - 05/05/2023 4:52 pm CLINICAL HISTORY: Head and neck injury with chest and abdominal pain status post fall TECHNIQUE: Computed axial tomography of head, neck, chest, abdomen and pelvis obtained. IV and oral contrast not requested. Coronal and sagittal reconstruction performed. All CT scans are performed using dose optimization technique as appropriate and may include automated exposure control or mA/KV adjustment according to patient size. COMPARISON: 2019 FINDINGS: 5 centimeter dense mass along left parietal convexity abutting the posterior falx has increased in si ze. Previously it measured 4 centimeters. Moderate amount of surrounding vasogenic edema within the w ashwini matter. No shift of the midline structures. An intracranial bleed is not seen. The ventricles are normal in caliber. An extra-axial fluid collection is not noted. Fluid within the sinuses/mastoids is not seen. A cervical fracture is not seen. No dislocation is noted. The evaluation of mediastinum, amaris, vessels, solid organs and bowel are limited secondary to the lac k of contrast administration. A mediastinal hematoma is not noted. A pleural effusion is not seen. A lung contusion is not present. The liver,spleen, pancreas, adrenals,kidneys and bladder do not demonstrate an acute traumatic injury Small bilateral inguinal hernias IMPRESSION: Enlargement of a 5 centimeter mass which is extra-axial elongated parietal convexity abutting the fal x compatible with a meningioma. It has increased in size. There is a moderate amount of surrounding v asogenic edema. No acute intracranial abnormality is seen. A cervical fracture is not visualized. If the patient continues to have symptoms to suggest intracran ial/spinal cord pathology MRI be recommended No acute traumatic abnormality involving the chest, abdomen or pelvis
--- NOTE | 2023-05-05 17:47 | ER ---
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 Right leg numb. tm6 Coronavirus screen: Vaccine status: Patient reports receiving the 2nd dose of the covid vaccine. Ebola Screen: Patient negative for fever greater than or equal to 101.5 degrees Fahrenheit, and additional compatible Ebola Virus Disease symptoms Patient denies exposure to infectious person. Patient denies travel to an Ebola-affected area in the 21 days before illness onset. No symptoms or risks identified at this time. Initial Sepsis Screen: Does the patient meet any 2 criteria? No. Patient's initial sepsis screen is negative. Does the patient have a suspected source of infection? No. Patient's initial sepsis screen is negative. Risk Assessment: Do you want to hurt yourself or someone else? Patient reports no desire to harm self or others. Onset of symptoms was May 05, 2023. 16:18 Method Of Arrival: Carried tm6 16:18 Acuity: RAN 2 tm6 19:39 Mechanism of Injury: Fall from standing position. km8 Triage Assessment: 16:18 General: Appears in no apparent distress. Behavior is calm, cooperative. Pain: tm6 Complains of pain in right leg Quality of pain is described as numb. EENT: No signs and/or symptoms were reported regarding the EENT system. Neuro: Level of Consciousness is awake, alert, obeys commands, Oriented to person, place, time, situation. Cardiovascular: Capillary refill < 3 seconds Patient's skin is warm and dry. Respiratory: Airway is patent Respiratory effort is even, unlabored, Respiratory pattern is regular, symmetrical. GI: Abdomen is round non-distended. : No signs and/or symptoms were reported regarding the genitourinary system. Derm: No signs and/or symptoms reported regarding the dermatologic system. Musculoskeletal: No signs and/or symptoms reported regarding the musculoskeletal system. Injury Description: Head injury sustained to scalp was sustained 1-2 hours ago. Historical: - Allergies: 16:23 No Known Allergies; ld1 - Home Meds: 19:58 carvedilol 25 mg oral tablet 1.5 tab 2 times per day [Active]; lisinopril 10 mg Oral nj1 tablet 1 tab daily [Active]; amlodipine 10 mg tablet 1 tab daily [Active]; hydrochlorothiazide 12.5 mg Oral capsule 1 caps daily [Active]; aspirin 81 mg Oral tablet, delayed release (enteric coated) 1 tab daily [Active]; - PMHx: 16:23 Hypertension; ld1 - Immunization history:: Adult Immunizations up to date. - Social history:: Smoking status: Patient denies any tobacco usage or history of. Screenin:42 [facility] ED Fall Risk Assessment (Adult) Score/Fall Risk Level 3 or more points = High nj1 Risk Oriented to surroundings, Maintained a safe environment, Educated pt \\T\\ family on fall prevention, incl call for assistance when getting out of bed, Assessed \\T\\ reinforced patient's understanding of fall precautions, Hourly rounding (assess needs \\T\\ fall precautionary measures) done, Used ambulatory aids as needed (educated on \\T\\ assisted with), Remained w/in arm's length of patient and in sight while toileting, Offered frequent toileting (1:1 observation), Remained with patient while ambulating, Utilized family, sitter, or virtual sand mixer operator as indicated. Abuse screen: Denies threats or abuse. Denies injuries from another. Nutritional screening: No deficits noted. Tuberculosis screening: No symptoms or risk factors identified. Primary Survey: 16:30 NO uncontrolled hemorrhage observed. Breathing/Chest: Spontaneous respiratory effort, nj1 equal unlabored respirations, breath sounds clear bilaterally, regular pattern, symmetrical chest rise and fall. Circulation: No external hemorrhage present. Regular and strong central pulse, skin warm/dry/normal color. Disability Client is alert. 19:38 Reassessment Breathing: Spontaneous respiratory effort, equal unlabored respirations, km8 breath sounds clear bilaterally, regular pattern with symmetrical chest rise and fall. Respiratory effort Spontaneous Unlabored Respiratory pattern Regular. Assessment: 16:23 Reassessment: Isidra shahid - daughter of patient - [phone]. ld1 16:30 General: Appears uncomfortable, Behavior is calm, cooperative, appropriate for age. nj1 Pain: Denies pain. 16:30 Neuro: Level of Consciousness is awake, alert, obeys commands, Oriented to person, nj1 place, situation, Casino Accountant are equal bilaterally Moves all extremities. Speech is normal, Facial symmetry appears normal, Reports numbness in right leg "for a long time". Cardiovascular: Patient's skin is warm and dry. Swelling noted to lower extremities, non pitting. Respiratory: Airway is patent Respiratory effort is even, unlabored. Injury Description: Abrasion sustained to scalp is. 17:27 Reassessment: Patient appears in no apparent distress at this time. Patient and/or nj1 family updated on plan of care and expected duration. Pain level reassessed. Patient is alert, oriented x 3, equal unlabored respirations, skin warm/dry/pink. Wants c-collar off. 18:38 Reassessment: Patient appears in no apparent distress at this time. No changes from nj1 previously documented assessment. Patient and/or family updated on plan of care and expected duration. Pain level reassessed. Patient is alert, oriented x 3, equal unlabored respirations, skin warm/dry/pink. Patient denies pain at this time. 19:33 Reassessment: Patient and/or family updated on plan of care and expected duration. Pain km8 level reassessed. Patient is alert, oriented x 3, equal unlabored respirations, skin warm/dry/pink. General: Appears in no apparent distress. comfortable, Behavior is calm, cooperative, appropriate for age. Pain: Denies pain. Neuro: Level of Consciousness is awake, alert, obeys commands, Oriented to person, place, time, situation, Appropriate for age Reports numbness in right leg. Cardiovascular: Patient's skin is warm and dry. Respiratory: Airway is patent Respiratory effort is even, unlabored, Respiratory pattern is regular, symmetrical. GI: No signs and/or symptoms were reported involving the gastrointestinal system. : Gaviria in place to gravity drainage. EENT: No signs and/or symptoms were reported regarding the EENT system. Derm: Skin is intact, is healthy with good turgor, Skin is dry, Skin is pink, warm \\T\\ dry. normal, Skin temperature is warm. Musculoskeletal: Range of motion: intact in all extremities, Parent/caregiver report the patient having weakness in right leg and left leg numbness in right leg. 21:18 General: report called to MIMI Urban. km8 Vital Signs: 16:18 Weight 101.5 kg; Height 5 ft. 10 in. ; tm6 16:18 BP 204 / 89; Pulse 78; Resp 21; Pulse Ox 99% on R/A; tm6 17:26 BP 223 / 88; Pulse 79; Resp 19; Pulse Ox 98% ; nj1 18:38 BP 181 / 77; Pulse 77; Resp 22; Pulse Ox 97% on R/A; nj1 19:00 BP 158 / 88; Pulse 78; Resp 16; Pulse Ox 96% on R/A; km8 19:15 BP 159 / 75; Pulse 78; Resp 16; Pulse Ox 97% on R/A; km8 19:30 BP 171 / 78; Pulse 80; Resp 16; Pulse Ox 96% on R/A; km8 20:00 BP 178 / 80; Pulse 81; Resp 16; Pulse Ox 97% on R/A; km8 20:30 BP 154 / 92; Pulse 80; Resp 16; Pulse Ox 96% on R/A; km8 21:00 BP 171 / 74; Pulse 77; Resp 16; Pulse Ox 96% on R/A; km8 21:30 BP 162 / 83; Pulse 80; Resp 16; Pulse Ox 97% on R/A; km8 21:45 BP 164 / 81; Pulse 79; Resp 16; Pulse Ox 96% on R/A; km8 16:18 Body Mass Index 32.11 (101.50 kg, 177.8 cm) tm6 Madison Coma Score: 19:37 Eye Response: spontaneous(4). Motor Response: obeys commands(6). Verbal Response: km8 oriented(5). Total: 15. ED Course: 16:12 Patient arrived in ED. mr 16:12 Adriana Colby DO is Private Physician. mr 16:12 Eulalio Rubio PA is PHCP. cp 16:12 Eulalio Yap MD is Attending Physician. cp 16:13 Latoya Cui, MIMI is Primary Nurse. nj1 16:18 Arm band placed on right wrist. tm6 16:19 Triage completed. tm6 16:23 Inserted saline lock: 20 gauge in left forearm, using aseptic technique. Blood ld1 collected. 16:53 XRAY Chest (1 view) In Process Unspecified. EDMS 16:53 CT Traumagram (Head C Spine CAP wo con) In Process Unspecified. EDMS 18:35 Gaviria cath inserted, using sterile technique, 18 Fr., by sd, balloon inflated, to nj1 gravity drainage, clamped. 19:03 Report given to Shannan LE. nj1 19:14 Initiated transfer to [facility] with Patricia microbiology coordinator. 5 19:37 No provider procedures requiring assistance completed. km8 19:37 Patient transferred, IV remains in place. km8 19:38 Provided Education on: transfer process. km8 19:38 Patient has correct armband on for positive identification. Bed in low position. Call 8 light in reach. Side rails up X 1. 19:38 Patient maintains SpO2 saturation greater than 95% on room air. km8 19:39 Thermoregulation: warm blanket given to patient. km8 20:38 Patient accepted to [facility] by DR Burks to 24 tower 2409. mc5 Administered Medications: 17:35 CANCELLED (Physician Discretion): clonidine0.2 mg PO once cp 18:08 Drug: Decadron - Dexamethasone IVP 10 mg IVP once Route: IVP; Site: left forearm; nj1 19:32 Follow up: Response: No adverse reaction km8 18:10 Drug: Labetalol IV 20 mg IV at calculated rate once over 2 mins Route: IV; Rate: nj1 calculated rate; Infused Over: 2 mins; Site: left forearm; 19:00 Follow up: IV Status: Completed infusion km8 19:32 Follow up: Response: No adverse reaction; Blood pressure is lowered km8 18:12 Drug: Keppra IV 1000 mg IV at calculated rate once Route: IV; Rate: calculated rate; nj1 Site: left forearm; 18:27 Follow up: Response: No adverse reaction; IV Status: Completed infusion; IV Intake: nj1 100ml 18:40 Not Given (Patient Refused): morphineor iv 2 mg IVP once over 4 mins nj1 Medication: 19:37 VIS not applicable for this client. km8 Intake: 18:27 IV: 100ml; Total: 100ml. nj1 Output: 22:14 Urine: 1200ml (Gaviria); Total: 1200ml. km8 Outcome: 17:46 ER care complete, transfer ordered by . anders 22:14 Transferred by ground EMS to [facility], [facility], Transfer form completed. km8 22:14 Condition: stable 22:14 Discharge instructions given to patient, family, Instructed on the need for transfer, Demonstrated understanding of instructions, 22:15 Patient left the ED. km8 Signatures: Dispatcher [employer] EDMS Delia Escalante, Reg Reg mr Joanne, Eulalio, RENATA PA Lisa Vernon, RN RN ld1 Latoya Cui RN RN nj1 Mary Anne Diamond 5 Shannan Teague RN RN km8 Drake Guerra RN RN tm6 Corrections: (The following items were deleted from the chart) 18:39 18:38 Reassessment: Patient appears in no apparent distress at this time. Patient nj1 and/or family updated on plan of care and expected duration. Pain level reassessed. Patient is alert, oriented x 3, equal unlabored respirations, skin warm/dry/pink. Patient denies pain at this time. nj1
--- NOTE | 2023-05-05 17:47 | EDPHYS ---
Physician Documentation [facility] Name: Luis Beach Age: 82 yrs Sex: Male : 1940 Arrival Date: 05/05/2023 Time: 16:11 Bed 16 Private MD: Adriana Colby ED Physician Eulalio Yap HPI: 05/05 16:25 This 82 yrs old Male presents to ER via Carried with complaints of Fall Injury. cp 16:25 Details of fall: The patient fell from a height, while walking up stairs into home, cp from an upright position, while walking. 16:27 Patient is a 82-year-old male with a past medical history significant for hypertension cp who presents to the emergency department via EMS after reported fall while walking up the stairs to his home prior to arrival. There was no observed loss of consciousness. Upon questioning patient reports right leg seem to become weak and got caught on the stairs causing him to lose his balance and fall backwards striking the back of his head. Patient also has observed slurred speech which the family reports is new today. Historical: - Allergies: 16:23 No Known Allergies; ld1 - Home Meds: 19:58 carvedilol 25 mg oral tablet 1.5 tab 2 times per day [Active]; lisinopril 10 mg Oral nj1 tablet 1 tab daily [Active]; amlodipine 10 mg tablet 1 tab daily [Active]; hydrochlorothiazide 12.5 mg Oral capsule 1 caps daily [Active]; aspirin 81 mg Oral tablet, delayed release (enteric coated) 1 tab daily [Active]; - PMHx: 16:23 Hypertension; ld1 - Immunization history:: Adult Immunizations up to date. - Social history:: Smoking status: Patient denies any tobacco usage or history of. ROS: 16:30 Constitutional: Negative for body aches, chills, fever, poor PO intake, cp 16:30 Eyes: Negative for injury, pain, redness, and discharge, cp 16:30 ENT: Negative for drainage from ear(s), ear pain, sore throat, difficulty swallowing, difficulty handling secretions, 16:30 Neck: Negative for stiffness, 16:30 Cardiovascular: Negative for chest pain, palpitations, 16:30 Respiratory: Negative for cough, shortness of breath, wheezing, 16:30 Abdomen/GI: Negative for abdominal pain, nausea, vomiting, and diarrhea, black/tarry stool, rectal bleeding, 16:30 Back: Negative for pain at rest, pain with movement, 16:30 Neuro: Positive for numbness, speech changes, weakness, of the right leg, Negative for altered mental status, 16:30 All other systems are negative, Exam: 16:35 Constitutional: The patient appears in no acute distress, alert, awake, cp non-diaphoretic, non-toxic, well developed, well nourished, overweight 16:35 Head/face: Noted is hematoma, that is mild, of the left side of the back of head and right side of the back of head, swelling, that is mild, of the left side of the back of head and right side of the back of head, 16:35 Eyes: Periorbital structures: appear normal, Pupils: equal, round, and reactive to light and accomodation, Extraocular movements: intact throughout, Conjunctiva: normal, no exudate, no injection, Sclera: no appreciated abnormality, Lids and lashes: appear normal, bilaterally, 16:35 ENT: External ear(s): are unremarkable, Nose: is normal, Mouth: Lips: moist, Oral mucosa: pink and intact, moist, Posterior pharynx: is normal, airway is patent, no erythema, no exudate, 16:35 Neck: C-spine: C-collar placed in ED, 16:35 Chest/axilla: Inspection: normal, Palpation: is normal, no crepitus, no tenderness, 16:35 Cardiovascular: Rate: normal, Rhythm: regular, Edema: ankle edema, that is moderate, 16:35 Respiratory: the patient does not display signs of respiratory distress, Respirations: normal, no use of accessory muscles, no retractions, labored breathing, is not present, Breath sounds: decreased breath sounds, that are mild, diffuse, 17:15 ECG was reviewed by the Attending Physician. cp Vital Signs: 16:18 Weight 101.5 kg; Height 5 ft. 10 in. ; tm6 16:18 BP 204 / 89; Pulse 78; Resp 21; Pulse Ox 99% on R/A; tm6 17:26 BP 223 / 88; Pulse 79; Resp 19; Pulse Ox 98% ; nj1 18:38 BP 181 / 77; Pulse 77; Resp 22; Pulse Ox 97% on R/A; nj1 19:00 BP 158 / 88; Pulse 78; Resp 16; Pulse Ox 96% on R/A; km8 19:15 BP 159 / 75; Pulse 78; Resp 16; Pulse Ox 97% on R/A; km8 19:30 BP 171 / 78; Pulse 80; Resp 16; Pulse Ox 96% on R/A; km8 20:00 BP 178 / 80; Pulse 81; Resp 16; Pulse Ox 97% on R/A; km8 20:30 BP 154 / 92; Pulse 80; Resp 16; Pulse Ox 96% on R/A; km8 21:00 BP 171 / 74; Pulse 77; Resp 16; Pulse Ox 96% on R/A; km8 21:30 BP 162 / 83; Pulse 80; Resp 16; Pulse Ox 97% on R/A; km8 21:45 BP 164 / 81; Pulse 79; Resp 16; Pulse Ox 96% on R/A; km8 16:18 Body Mass Index 32.11 (101.50 kg, 177.8 cm) tm6 Madison Coma Score: 19:37 Eye Response: spontaneous(4). Motor Response: obeys commands(6). Verbal Response: km8 oriented(5). Total: 15. MDM: 16:14 Patient medically screened. cp 17:00 Differential diagnosis: closed head injury, contusion, fracture, multiple trauma. cp 20:01 Data reviewed: vital signs, nurses notes, lab test result(s), EKG, radiologic studies, cp CT scan. Management of patient was discussed with the following: Can Bander Operator: neurologist \T\[facility] who will consult on patient and requests transfer to hospitalist services. I considered the following discharge prescriptions or medication management in the emergency department Medications were administered in the Emergency Department. See AUG. 05/05 16:21 Order name: Basic Metabolic Panel; Complete Time: 17:03 05/05 17:03 Interpretation: Normal except: CL 108; GLUC 123; BUN 22; CRE 1.36; GFR 51. 05/05 16:21 Order name: CBC with Diff; Complete Time: 17:03 05/05 16:21 Order name: Magnesium; Complete Time: 17:03 05/05 16:21 Order name: NT PRO-BNP; Complete Time: 17:03 05/05 16:21 Order name: PT-INR; Complete Time: 17:03 cp 05/05 16:21 Order name: Troponin HS; Complete Time: 17:03 cp 05/05 17:04 Interpretation: Reviewed. cp 05/05 16:23 Order name: Urinalysis w/ reflexes; Complete Time: 17:03 cp 05/05 17:13 Interpretation: Reviewed. cp 05/05 16:34 Order name: Glucose, Ancillary Testing; Complete Time: 17:03 EDMS 05/05 16:21 Order name: XRAY Chest (1 view); Complete Time: 17:12 cp 05/05 16:35 Order name: CT Traumagram (Head C Spine CAP wo con); Complete Time: 17:23 cp 05/05 16:21 Order name: EKG; Complete Time: 16:21 cp 05/05 16:21 Order name: Cardiac monitoring; Complete Time: 16:23 cp 05/05 16:21 Order name: EKG - Nurse/Tech; Complete Time: 17:28 cp 05/05 16:21 Order name: IV Saline Lock; Complete Time: 16:23 05/05 16:21 Order name: Labs collected and sent; Complete Time: 16:23 cp 05/05 16:21 Order name: O2 Per Protocol; Complete Time: 16:23 cp 05/05 16:21 Order name: O2 Sat Monitoring; Complete Time: 16:23 05/05 18:37 Order name: Gaviria; Complete Time: 18:37 nj1 EC:15 Rate is 78 beats/min. Rhythm is regular. PA interval is normal. QRS interval is normal. cp QT interval is normal. T waves are Inverted in lead aVR. Interpreted by me. Reviewed by me. Administered Medications: 17:35 CANCELLED (Physician Discretion): clonidine0.2 mg PO once cp 18:08 Drug: Decadron - Dexamethasone IVP 10 mg IVP once Route: IVP; Site: left forearm; nj1 19:32 Follow up: Response: No adverse reaction 8 18:10 Drug: Labetalol IV 20 mg IV at calculated rate once over 2 mins Route: IV; Rate: nj1 calculated rate; Infused Over: 2 mins; Site: left forearm; 19:00 Follow up: IV Status: Completed infusion km8 19:32 Follow up: Response: No adverse reaction; Blood pressure is lowered 8 18:12 Drug: Keppra IV 1000 mg IV at calculated rate once Route: IV; Rate: calculated rate; nj1 Site: left forearm; 18:27 Follow up: Response: No adverse reaction; IV Status: Completed infusion; IV Intake: nj1 100ml 18:40 Not Given (Patient Refused): morphineor iv 2 mg IVP once over 4 mins nj1 Disposition Summary: 05/05/23 17:46 Transfer Ordered Notes: Transfer Location: [facility] cp Reason: Higher level of care cp Condition: Stable cp Problem: new cp Symptoms: have improved cp Accepting Physician: Doctor(05/05/23 22:15) km8 Diagnosis - Intracranial space-occupying lesion found on diagnostic imaging of central nervous cp system - Weakness - right leg cp - Fall (on) (from) unspecified stairs and steps cp Forms: - Medication Reconciliation Form cp - SBAR form cp Signatures: Dispatcher [employer] EDMS Eulalio Rubio PA PA cp Lisa Dumont, RN RN ld1 Latoya Cui RN RN nj1 Shannan Teague RN RN km8 Drake Guerra RN RN tm6 Corrections: (The following items were deleted from the chart) 16:45 16:23 Head C Spine CAP W Con+CT.RAD.BRZ ordered. EDMS EDMS 17:35 17:33 cloNIDine PO 0.2 mg PO once ordered. cp cp 17:47 17:46 Doctor cp cp 18:37 17:33 Bladder Scanner ordered. cp nj 20:32 05/04 16:35 Constitutional: The patient appears in no acute distress, alert, awake, cp non-diaphoretic, non-toxic, well developed, well nourished, overweight cp 05/05 20:32 05/04 16:35 Head/face: Noted is hematoma, that is mild, of the left side of the back of cp head and right side of the back of head, swelling, that is mild, of the left side of the back of head and right side of the back of head, cp 05/05 20:32 05/04 16:35 Eyes: Periorbital structures: appear normal, Pupils: equal, round, and cp reactive to light and accomodation, Extraocular movements: intact throughout, Conjunctiva: normal, no exudate, no injection, Sclera: no appreciated abnormality, Lids and lashes: appear normal, bilaterally, cp 05/05 20:32 05/04 16:35 ENT: External ear(s): are unremarkable, Nose: is normal, Mouth: Lips: cp moist, Oral mucosa: pink and intact, moist, Posterior pharynx: is normal, airway is patent, no erythema, no exudate, cp 05/05 20:32 05/04 16:35 Neck: C-spine: C-collar placed in ED, cp cp 05/05 20:05/04 16:35 Chest/axilla: Inspection: normal, Palpation: is normal, no crepitus, no cp tenderness, cp 05/05 20:32 05/04 16:35 Cardiovascular: Rate: normal, Rhythm: regular, Edema: ankle edema, that is cp moderate, cp 05/05 20:32 11 16:35 Respiratory: the patient does not display signs of respiratory distress, cp Respirations: normal, no use of accessory muscles, no retractions, labored breathing, is not present, Breath sounds: decreased breath sounds, that are mild, diffuse, cp 05/05 22:15 17:47 Doctor cp km8
[2023-05-05] MEDS ORDERED: LEVETIRACETAM 500 MG/5 ML VIAL IV ONE (17:59)
[2023-05-05] MEDS ORDERED: dexAMETHasone 10 MG/ML VIAL ONE (17:59)
[2023-05-05] MEDS ORDERED: LABETALOL 20 MG/4ML SYRINGE IV ONE (18:00)
[2023-05-05] MEDS ORDERED: NA CHLORIDE 0.9% 100 ML ONE (18:18)
[2023-05-05 23:07] VITALS: BP 164/81; O2SAT 96
--- NOTE | 2023-05-09 17:05 | EKG ---
Test Date: 2023-05-05 Test Time: 17:08:43 Byproducts Maker: CASTRO MEASUREMENT RESULTS: Intervals: Rate: 78 PA: 174 QRSD: 96 QT: 418 QTc: 476 Holcomb: P: 73 PA: 174 QRS: -51 T: 76 INTERPRETIVE STATEMENTS: Normal sinus rhythm Left anterior fascicular block Abnormal ECG Compared to ECG 06/04/2018 09:08:04 Left anterior fascicular block now present Atrial premature complex(es) no longer present Left-axis deviation no longer present Left ventricular hypertrophy no longer present Electronically Signed On 05-09-23 16:55:07 CP BLEACHER OPERATOR by Jhony Fuentes
== END 2023-05-05 22:15 | disposition short-term general hospital (02) ==
LOC: ER 16:11
DX: R90.0 Intracranial space-occupying lesion found on diagnostic imaging of central nervous system (principal); R53.1 Weakness; W10.9XXA Fall (on) (from) unspecified stairs and steps, initial encounter; I10 Essential (primary) hypertension; Z79.82 Long term (current) use of aspirin
CPT/HCPCS: 96365; 93005; 85025; 81001; 80048; 36415; 83735; 85610; 82947; 84484; 83880; 70450; 71250; 72125; 71045; 51702; 96375; 99285; J1953; J1100